=== PATIENT | female | born 1930 | race Caucasian/White ===

== ENCOUNTER 2017-03-23 09:19 | Emergency (ER) | payer MEDICARE, OTHER ==
[~2017-03-23] VITALS: Ht 165.1 cm; Wt 59.8 kg
[~2017-03-23 09:19] MED LIST: NO HOME MEDS
[2017-03-23 10:47] VITALS: BP 130/78
== END 2017-03-23 10:48 | disposition home or self-care (01) ==
LOC: ER 09:20
DX: S40.011A Contusion of right shoulder, initial encounter (principal); S70.01XA Contusion of right hip, initial encounter; E11.9 Type 2 diabetes mellitus without complications; W01.0XXA Fall on same level from slipping, tripping and stumbling without subsequent striking against object, initial encounter; Y93.89 Activity, other specified; Y92.89 Other specified places as the place of occurrence of the external cause; Y99.8 Other external cause status
CPT/HCPCS: 73030; 73502; 99284

== ENCOUNTER 2018-10-05 14:23 | Emergency (ER) | payer MEDICARE, OTHER ==
[~2018-10-05] VITALS: Ht 162.6 cm; Wt 60.0 kg
[2018-10-05 14:27] VITALS: BP 146/62
--- NOTE | 2018-10-05 15:50 | NUR ---
Pt has long toenail on great toe on Rt. PA to attempt to clip nail.
== END 2018-10-05 16:20 | disposition home or self-care (01) ==
LOC: ER 14:24
DX: B35.1 Tinea unguium (principal); E11.9 Type 2 diabetes mellitus without complications
CPT/HCPCS: 99281